=== PATIENT | female | born 1935 | race Hispanic/Latino ===

== ENCOUNTER 2021-05-23 15:52 | Emergency (ER) | payer OTHER, MEDICARE ==
[~2021-05-23] VITALS: Ht 157.5 cm; Wt 56.7 kg
[2021-05-23] MEDS ORDERED: ULTRAM50 MG PO (18:24)
[2021-05-23] MEDS ORDERED: TRAMADOL HCL 50 MG TAB PO ONE (18:30)
[2021-05-23 18:49] VITALS: BP 136/86
== END 2021-05-23 18:50 | disposition home or self-care (01) ==
LOC: ER 17:19
DX: S00.83XA Contusion of other part of head, initial encounter (principal); W01.0XXA Fall on same level from slipping, tripping and stumbling without subsequent striking against object, initial encounter; Y92.481 Parking lot as the place of occurrence of the external cause; Y99.9 Unspecified external cause status; S93.401A Sprain of unspecified ligament of right ankle, initial encounter; I10 Essential (primary) hypertension; E11.9 Type 2 diabetes mellitus without complications; E03.9 Hypothyroidism, unspecified
CPT/HCPCS: 70450; 72125; 99284